=== PATIENT | male | born 1990 | race Hispanic/Latino ===

== ENCOUNTER 2018-11-20 18:46 | Emergency (ER) | payer OTHER ==
[~2018-11-20] VITALS: Ht 193 cm; Wt 63.5 kg
--- OUTSIDE RECORDS SUMMARY | 2018-11-20 18:49 | XMS REPORT ---
[facility] Address Unknown Phone Unavailable Care Team Providers Care Nurse Unit Manager Name Role Phone Joseph GALEANO Unavailable Unavailable Payers Payer Name Policy Type Policy Number Effective Date Expiration Date Problems This patient has no known problems. Allergies, Adverse Reactions, Alerts Allergy Name Allergy Type Status Severity Reaction(s) Onset Date Inactive Date Treating Clinician Comments No Known Allergies DA Active U 2018-11-03 00:00:00 Medications This patient has no known medications. Results Test Description Test Time Test Comments Text Results Atomic Results Result Comments - CT ABD PELVIS W/CONT 2018-11-03 17:12:00 Name: DRABY RAMOS [facility] : 1990 Age/S: 28 / M [address] [address] Unit #: [id number] Loc: [place] [address] Phys: Gerardo Chan MD,PhD Acct: [id number] Dis Date: Status: REG CLI PHONE #: [phone] Exam Date: 11/03/2018 1612 FAX #: Reason: MALIGNANT NEOPLASM EXAMS: CPT: [id number] CT ABD PELVIS W/CONT 97221 EXAMINATION: - CT CHEST W/CONTRAST, - CT ABD PELVIS W/CONT. LOCATION: S 17. HISTORY: MALIGNANT NEOPLASM. COMPARISON: CT chest dated 06/27/2018. TECHNIQUE: CT chest, abdomen and pelvis was performed with the use of IV contrast (100 mL Isovue 300). Sagittal and coronal reconstructed images were available for review. This exam was performed according to our departmental dose-optimization program, which includes automated exposure control, adjustment of the mA and/or kV according to patient size, and/or use of iterative reconstruction technique. FINDINGS: Chest: 3 mm left lower lobe nodule is new since 06/27/2018 (axial image 61). 3 mm right upper lobe nodule (axial image 24), 4 mm right middle lobe nodule (axial image 39), and 2 mm right lower lobe nodule (axial image 51) are unchanged. Mild biapical lung scarring is present.. There is no axillary, mediastinal, or hilar adenopathy. The heart is normal in size. There is no pericardial effusion. The thyroid gland appears normal. 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 The liver, gallbladder, pancreas, spleen, bilateral adrenal glands, and bilateral kidneys appear within normal limits. There is no evidence of bowel obstruction. No pneumoperitoneum or ascites is identified. There is no mesenteric or retroperitoneal adenopathy. Pelvis: The urinary bladder appears normal. No inguinal or pelvic adenopathy is identified. Bones/soft tissues: Subcentimeter sclerotic foci are seen in the right femoral head, right PAGE 1 Signed Report (CONTINUED) Name: DARBY RAMOS [facility] : 1990 Age/S: 28 / M [address] [address] Unit #: [id number] Loc: [place] [address] Phys: Gerardo Chan MD,PhD Acct: [id number] Dis Date: Status: REG CLI PHONE #: [phone] Exam Date: 11/03/2018 1612 FAX #: Reason: MALIGNANT NEOPLASM EXAMS: CPT: [id number] CT ABD PELVIS W/CONT 88442 <Continued> ilium, and left inferior pubic ramus, likely representing bone islands. No aggressive lytic or blastic lesions are seen. IMPRESSION: No evidence of retroperitoneal lymphadenopathy. Nonspecific 3 mm left lower lobe lung nodule, new since 06/27/2018. Several 2-4 mm right lung nodules are unchanged. 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 at 1712 Reported and signed by: Kate Waggoner M.D. CC: Gerardo JACKSON,PhD Dustin Technologist:Alexis Rodriguez RT(R)(CT); Mo CTDI: DLP: Trnscb Date/Time: 11/03/2018 (847) [email or web address] Orig Print D/T: S: 11/03/2018 (9289) PAGE 2 Signed Report - CT CHEST W/CONTRAST 2018-11-03 17:12:00 Name: DARBY RAMOS [facility] : 1990 Age/S: 28 / M [address] [address] Unit #: [id number] Loc: [place] [address] Phys: Gerardo Chan MD,PhD Acct: [id number] Dis Date: Status: REG CLI PHONE #: [phone] Exam Date: 11/03/2018 1612 FAX #: Reason: MALIGNANT NEOPLASM EXAMS: CPT: [id number] CT CHEST W/CONTRAST 84596 EXAMINATION: - CT CHEST W/CONTRAST, - CT ABD PELVIS W/CONT. LOCATION: S 17. HISTORY: MALIGNANT NEOPLASM. COMPARISON: CT chest dated 06/27/2018. TECHNIQUE: CT chest, abdomen and pelvis was performed with the use of IV contrast (100 mL Isovue 300). Sagittal and coronal reconstructed images were available for review. This exam was performed according to our departmental dose-optimization program, which includes automated exposure control, adjustment of the mA and/or kV according to patient size, and/or use of iterative reconstruction technique. FINDINGS: Chest: 3 mm left lower lobe nodule is new since 06/27/2018 (axial image 61). 3 mm right upper lobe nodule (axial image 24), 4 mm right middle lobe nodule (axial image 39), and 2 mm right lower lobe nodule (axial image 51) are unchanged. Mild biapical lung scarring is present.. There is no axillary, mediastinal, or hilar adenopathy. The heart is normal in size. There is no pericardial effusion. The thyroid gland appears normal. 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 The liver, gallbladder, pancreas, spleen, bilateral adrenal glands, and bilateral kidneys appear within normal limits. There is no evidence of bowel obstruction. No pneumoperitoneum or ascites is identified. There is no mesenteric or retroperitoneal adenopathy. Pelvis: The urinary bladder appears normal. No inguinal or pelvic adenopathy is identified. Bones/soft tissues: Subcentimeter sclerotic foci are seen in the right femoral head, right PAGE 1 Signed Report (CONTINUED) Name: DARBY RAMOS [facility] : 1990 Age/S: 28 / M [address] [address] Unit #: [id number] Loc: [place] [address] Phys: Gerardo Chan MD,PhD Acct: [id number] Dis Date: Status: REG CLI PHONE #: [phone] Exam Date: 11/03/2018 1612 FAX #: Reason: MALIGNANT NEOPLASM EXAMS: CPT: [id number] CT CHEST W/CONTRAST 62282 <Continued> ilium, and left inferior pubic ramus, likely representing bone islands. No aggressive lytic or blastic lesions are seen. IMPRESSION: No evidence of retroperitoneal lymphadenopathy. Nonspecific 3 mm left lower lobe lung nodule, new since 06/27/2018. Several 2-4 mm right lung nodules are unchanged. 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 at 1712 Reported and signed by: Kate Waggoner M.D. CC: Gerardo JACKSON,PhD Dustin Technologist:Alexis Rodriguez, RT(R)(CT); Mo CTDI: DLP: Trnscb Date/Time: 11/03/2018 (1712) [email or web address] Orig Print D/T: S: 11/03/2018 (1085) PAGE 2 Signed Report ISTAT-GLUCOSE 2018-11-03 15:50:00 ISTAT-GLUCOSE (test code=GLUP) 91 mg/dL 70-105 [id number] 15:50:00* Test Item Value Reference Range Comments ISTAT-BUN (test code=BUNP) mg/dL 8-26 BEDSIDE [id number] 15:50:00* Test Item Value Reference Range Comments BEDSIDE CREATININE (test code=CREATBED) mg/dL 0.6-1.3 [id number] 15:50:00* Test Item Value Reference Range Comments ISTAT-GLUCOSE (test code=GLUP) 91 mg/dL 70-105 [id number] 15:50:00* Test Item Value Reference Range Comments ISTAT-BUN (test code=BUNP) 19 mg/dL 8-26 BEDSIDE [id number] 15:50:00* Test Item Value Reference Range Comments BEDSIDE CREATININE (test code=CREATBED) mg/dL 0.6-1.3 [id number] 15:50:00* Test Item Value Reference Range Comments ISTAT-GLUCOSE (test code=GLUP) 91 mg/dL 70-105 [id number] 15:50:00* Test Item Value Reference Range Comments ISTAT-BUN (test code=BUNP) 19 mg/dL 8-26 BEDSIDE [id number] 15:50:00* Test Item Value Reference Range Comments BEDSIDE CREATININE (test code=CREATBED) 0.6 mg/dL 0.6-1.3 - US SCROTUM AND [id number] 14:05:00 Name: DARBY RAMOS 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 COMPARISON: None available TECHNIQUE: Santacruz scale and color mode imaging of testicles was performed. FINDINGS: The right testis measures 4.1 x 1.8 x 3.4 cm. The left testicle has been removed. The right testicle is normal in echotexture without focal intra-testicular mass. The right epididymal head measures 0.9 x 1.4 x 0.9 cm. No epididymal head cyst or spermatocele. No hydrocele or varicocele (despite valsalva) noted. Arterial and venous flow is confirmed within the right testicle using spectral waveform analysis. IMPRESSION: No evidence of testicular torsion or intra/extra-testicular mass. Prior left orchiectomy. LOCATION: R 16 at 1405 Reported and signed by: Xin Gomez M.D. CC: Gerardo JACKSON,PhD Dustin Technologist: Brooke Smith [facility] Date/Time: 08/31/2018 (7551) 16 PAGE 1 Signed Report Name: DARBY RAMOS [place] : 1990 Age/S: 28 / M [address] [address] Unit #: [id number] Loc: [place] [address] Phys: Gerardo Chan MD,PhD Acct: [id number] Dis Date: Status: REG CLI PHONE #: [phone] Exam Date: 08/31/2018 1208 FAX #: Reason: MALIGNANT NEOPLASM EXAMS: CPT: [id number] US SCROTUM AND CNTS 44496 < Continued> Orig Print D/T: S: 08/31/2018 (3201) Probe: PAGE 2 Signed Report - XR CHEST 2 [id number] 12:29:00 [facility] [place] [facility] 1990 Age/S: 28 / M [address] [address] Unit #: [id number] Loc: [place] [address] Phys: Silas Chan MD,PhD Acct: [id number] Di s Date: Status: REG CLI PHONE #: Exam Date: 08/31/2018 1138 FAX #: Reason: MALIGNANT NEOPLASM EXAMS: CPT: [id number] XR CHEST 2 V 86552 Fluoro Time: DAP (Gy m2): Air Kerma (mGy): EXAMINATION: - XR CHEST 2 V. LOCATION: S17. HISTORY: Malignant neoplasm of testicle. COMPARISON: Chest CT 06/27/2018. FINDINGS: Cardiac silhouette/Mediastinal contour: Within normal limits. Kian gs: No focal consolidation. No pleural effusion. Biapical thickening/scarr ing. Osseous Structures: No acute osseous abnormalities. IMPRESSION: No focal consolidation. at 1229 Reported and signed by: Shelley Merida M.D. CC: Gerardo JACKSON,PhD Dustin PAGE 1 Signed Report Name: DARBY RAMOS [facility] : 1990 Age/S: 28 / M [address] [address] Unit #: [id number] Loc: [place] [address] Phys: Gerardo Chan MD,PhD Acct: [id number] Dis Date: Status: REG CLI PHONE #: [phone] Exam Date: 08/31/2018 1133 FAX #: Reason: MALIGNANT NEOPLASM EXAMS: CPT: [id number] XR CHEST 2 V 95332 Fluoro Time: DAP (Gy m2): Air Kerma (mGy): <Continued> Technologist: Alexis Rodriguez, RT(R)(CT); ... Trnscb Petey e/Time: 08/31/2018 (1229) t.SDR.ANS4 Orig Print D/T: S: (7720) PAGE 2 Signed Report SP LUMBAR, COMPLETE MIN 4VW [address] [address] Patient Name: DARBY RAMOS MR #: [id number] : Age/Sex: 26/M Req #: [id number] Adm Physician: Ordered by: THAO WILKES Report #: [id number] Location: ER Room/ Bed: Procedure: [id number] DX/SP LUMBAR, COMPLETE MIN 4VW Exam Date: 03/21/17 Exam Time: 2114 REPORT STATUS: Signed SP LUMBAR, COMPLETE MIN 4VW Comparison: None Clinical history: Low back pain Findings: Alignment is intact. Vertebral body heig hts and disc spaces are preserved. Impression: No acute bony abnormality Signed by: Dr Juan Gonzalez MD on 03/21/2017 10:00 PM Dictated By: JUAN GONZALEZ MD 220 0 Transcribed By: PLACIDO on 03/21/17 2200 COPY TO: THAO WILKES
[2018-11-20] MEDS ORDERED: LIDOCAINE HCL 1% LOCAL INJ 20 ML VIAL INJ ONE (21:00)
[2018-11-20] MEDS ORDERED: NEOMYCIN/POLYMYXIN/BACITRACIN 15 GM TUBE TOP ONE (21:00)
[2018-11-20] MEDS ORDERED: NEOMYCIN/POLYMYX/BACITR OINT 0.9 GM PKT ONE (21:11)
[2018-11-20] MEDS ORDERED: NEOMYCIN/POLYMYX/BACITR OINT 0.9 GM PKT TOP ONE (21:15)
[2018-11-20 21:22] VITALS: BP 130/84
== END 2018-11-20 21:30 | disposition home or self-care (01) ==
LOC: ER 18:46
DX: L02.414 Cutaneous abscess of left upper limb (principal); Z85.47 Personal history of malignant neoplasm of testis
CPT/HCPCS: 10061; 99283; J2001

== ENCOUNTER 2018-12-19 18:23 | Emergency (ER) | payer OTHER ==
[~2018-12-19] VITALS: Ht 193 cm; Wt 63.5 kg
[2018-12-19] MEDS ORDERED: KETOROLAC TROMETHAMINE 30 MG/ML VIAL IV STA (18:29)
[2018-12-19] MEDS ORDERED: KETOROLAC TROMETHAMINE 60 MG/2 ML VIAL IM ONE (18:30)
--- NOTE | 2018-12-19 19:06 | Diagnostic Imaging Report ---
EXAMINATION: CHEST 2 VIEWS INDICATION: ^STRAIN POSTERIOR CHEST PAIN COMPARISON: None FINDINGS: PA and lateral views TUBES and LINES: None. LUNGS: Lungs are well inflated. Lungs are clear. There is no evidence of pneumonia or pulmonary edema. PLEURA: No pleural effusion or pneumothorax. HEART AND MEDIASTINUM: The cardiomediastinal silhouette is unremarkable. BONES AND SOFT TISSUES: Mild pectus excavatum deformity. No acute osseous lesion. Soft tissues are unremarkable. UPPER ABDOMEN: No free air under the diaphragm. IMPRESSION: No acute thoracic abnormality. Signed by: Dr. Jean Pierre Kendall M.D. on 12/19/2018 7:02 PM
[2018-12-19] MEDS ORDERED: KETOROLAC TROME10 MG PO (20:26)
[2018-12-19 21:05] VITALS: BP 118/74
== END 2018-12-19 21:30 | disposition home or self-care (01) ==
LOC: ER 18:23
DX: M54.6 Pain in thoracic spine (principal); M54.5 Low back pain; S39.012A Strain of muscle, fascia and tendon of lower back, initial encounter; R07.89 Other chest pain; X50.0XXA Overexertion from strenuous movement or load, initial encounter; Z85.47 Personal history of malignant neoplasm of testis; F17.210 Nicotine dependence, cigarettes, uncomplicated
CPT/HCPCS: 71046; 99283; J1885